=== PATIENT | female | born 1950 | race Caucasian/White ===

== ENCOUNTER 2016-11-17 05:39 | Inpatient (IN) | payer MEDICARE, SELFPAY ==
[~2016-11-17] VITALS: Ht 167.6 cm; Wt 70.3 kg
[2016-11-17] MEDS ORDERED: METOPROLOL TART25 MG PO (06:46)
[2016-11-17] MEDS ORDERED: NORVASC 5 MG TAB5 MG PO (06:47)
[2016-11-17] MEDS ORDERED: NORCO 7.5-3251 EACH PO (06:50)
[2016-11-17] MEDS ORDERED: PRAVASTATIN SOD20 MG PO (06:50)
[2016-11-18 06:03] LABS: HEMOGLOBIN 9.3 gm/dl (12.3-15.3); RED BLOOD COUNT 3.28 M/UL (4.00-5.10)
[2016-11-18 06:25] LABS: BUN/CREATININE RATIO 19 (0-10)
[2016-11-19 06:02] LABS: HEMOGLOBIN 9.3 gm/dl (12.3-15.3); RED BLOOD COUNT 3.27 M/UL (4.00-5.10); WHITE BLOOD COUNT 10.7 K/UL (4.5-11.0)
[2016-11-19 06:25] LABS: BUN/CREATININE RATIO 18 (0-10)
[2016-11-19] MEDS ORDERED: PERCOCET 5-3251 EACH PO (11:25)
[2016-11-19] MEDS ORDERED: XARELTO10 MG PO (11:26)
== END 2016-11-19 15:50 | disposition home health service (06) | DRG 470 ==
LOC: M/S 05:39 → ZOBSOF 05:39 → M/S 18:16
PROVIDERS: ADMIT Orthopaedic Surgery
PROC: 3E0T3CZ (ICD-10-PCS; 2016-11-17)
PROC: 0SR904A Replacement of Right Hip Joint with Ceramic on Polyethylene Synthetic Substitute, Uncemented, Open Approach (ICD-10-PCS; principal; 2016-11-17 08:15)
DX: M16.11 Unilateral primary osteoarthritis, right hip (principal); D62 Acute posthemorrhagic anemia; M87.851 Other osteonecrosis, right femur; M25.751 Osteophyte, right hip; I10 Essential (primary) hypertension; E78.5 Hyperlipidemia, unspecified; Z79.891 Long term (current) use of opiate analgesic; Z79.899 Other long term (current) drug therapy; Z88.5 Allergy status to narcotic agent; Z96.642 Presence of left artificial hip joint; Z98.890 Other specified postprocedural states
CPT/HCPCS: 36415; 73501; 80048; 85025; 97110; 97116; 97530; 97535; C1776; J0690; J1885; J2270; J2405; J2710; J2795; J3010; J3370; J7030; J7050; J7120

== ENCOUNTER → 2017-03-16 | Outpatient (CLI) | payer MEDICARE ==
[~2017-03-16] MED LIST: METOPROLOL TART25 MG PO; NORCO 7.5-3251 EACH PO; NORVASC 5 MG TAB5 MG PO; PERCOCET 5-3251 EACH PO; PRAVASTATIN SOD20 MG PO; XARELTO10 MG PO
== END ==
LOC: MAMO 13:40
DX: Z12.31 Encounter for screening mammogram for malignant neoplasm of breast (principal); Z78.0 Asymptomatic menopausal state
CPT/HCPCS: G0202

== ENCOUNTER → 2021-05-23 | Outpatient (CLI) | payer MEDICARE ==
[~2021-05-23] MED LIST changes: +LODINE CAP 300300 MG PO
== END ==
LOC: KOH-I 14:52
DX: S40.012A Contusion of left shoulder, initial encounter (principal); M19.012 Primary osteoarthritis, left shoulder
CPT/HCPCS: 73030

== ENCOUNTER → 2021-10-16 | Outpatient (CLI) | payer MEDICARE | LOC: MAMO 10-14 07:30 | DX: Z12.31 Encounter for screening mammogram for malignant neoplasm of breast (principal) | CPT/HCPCS: 77063; 77067 ==